=== PATIENT | male | born 1960 | race Caucasian/White ===

== ENCOUNTER 2021-04-12 07:09 | Emergency (ER) | payer BC ==
--- NOTE | 2021-04-12 07:46 | EDM.PDOC ---
ED HPI GENERAL MEDICAL PROBLEM - General Chief Complaint: Upper Extremity Injury/Pain Stated Complaint: R PINKY FINGER LAC Time Seen by Provider: 04/12/21 07:27 Source of Information: Reports: Patient History Limitations: Reports: No Limitations - History of Present Illness INITIAL COMMENTS - FREE TEXT/NARRATIVE: The patient presents with a laceration to the right little finger. He was using a slicer and cut part of the tip of his finger yesterday. He is right handed and he does not think his tetanus is up to date. He does not want to update his tetanus at this time. Onset: Sudden Duration: Day(s): (Yesterday) Location: Reports: Upper Extremity, Right (little finger) Quality: Reports: Burning Severity: Mild Improves with: Reports: None Worsens with: Reports: None Associated Symptoms: Reports: No Other Symptoms Right Finger-Little Pain Score (Numeric/FACES): 2 - Related Data Allergies Allergy/AdvReac Type Severity Reaction Status Date / Time No Known Allergies Allergy Verified 04/12/21 07:29 Home Meds: Home Meds Empagliflozin [Jardiance] 04/12/21 [History] Losartan/Hydrochlorothiazide [Losartan-HCTZ 100-12.5 MG] 04/12/21 [History] atorvaSTATin [Lipitor] 04/12/21 [History] sitaGLIPtin Phos/Metformin HCl [Janumet 50-1,000 MG] 04/12/21 [History] Review of Systems - Review of Systems Review Of Systems: See Below Constitutional: Reports: No Symptoms Eyes: Reports: No Symptoms Ears: Reports: No Symptoms Nose: Reports: No Symptoms Mouth/Throat: Reports: No Symptoms Respiratory: Reports: No Symptoms Cardiovascular: Reports: No Symptoms GI/Abdominal: Reports: No Symptoms Genitourinary: Reports: No Symptoms Musculoskeletal: Reports: Other (laceration to the right little finger) ED EXAM, GENERAL - Physical Exam Exam: See Below Exam Limited By: No Limitations General Appearance: Alert, No Apparent Distress Ears: Normal External Exam Nose: Normal Inspection Head: Atraumatic, Normocephalic Neck: Normal Inspection Respiratory/Chest: No Respiratory Distress, Lungs Clear, Normal Breath Sounds Cardiovascular: Regular Rate, Rhythm, No Edema, No Murmur GI/Abdominal: Soft, Non-Tender, No Organomegaly, No Mass Back Exam: Normal Inspection Extremities: Other (the tip of his right little finger has part of it cut off. It is about 1cm X 1cm) Course - Vital Signs Last Recorded V/S: Last Vital Signs Temp 98.6 F 04/12/21 07:26 Pulse 82 04/12/21 07:26 Resp 16 04/12/21 07:26 BP 170/77 H 04/12/21 07:26 Pulse Ox 98 04/12/21 07:26 - Re-Assessments/Exams Free Text/Narrative Re-Assessment/Exam: 04/12/21 07:46 There is nothing to suture. I will bandage him up and have him follow up with Dr Mccall. 04/12/21 07:58 I will have my nurse bandage him up. Departure - Departure Time of Disposition: 08:00 Disposition: Home, Self-Care 01 Condition: Good Clinical Impression: Partial avulsion of fingernail Qualifiers: Encounter type: initial encounter Qualified Code(s): S61.309A - Unspecified open wound of unspecified finger with damage to nail, initial encounter - Discharge Information *PRESCRIPTION DRUG MONITORING PROGRAM REVIEWED*: Not Applicable *COPY OF PRESCRIPTION DRUG MONITORING REPORT IN PATIENT RUPALI: Not Applicable Referrals: PCP,Not In Area [Primary Care Provider] - Hermann Mccall MD [Physician] - 1 Week Forms: ED Department Discharge Additional Instructions: Leave the bandage on for 24 hours. After that you can remove it soak your finger in warm soapy water and apply antibiotics ointment after and dress it. Follow up with Dr Mccall within a week. Please return if you are worse. Sepsis Event Note (ED) - Evaluation Sepsis Screening Result: No Definite Risk - Focused Exam Vital Signs: Vital Signs Temp Pulse Resp BP Pulse Ox 04/12/21 07:26 98.6 F 82 16 170/77 H 98
== END 2021-04-12 08:41 | disposition home or self-care (01) ==
LOC: JD.ED 07:09
DX: S61.316A Laceration without foreign body of right little finger with damage to nail, initial encounter (principal); Z79.899 Other long term (current) drug therapy; W26.8XXA Contact with other sharp object(s), not elsewhere classified, initial encounter
CPT/HCPCS: 99282